=== PATIENT | female | born 1950 | race Asian ===

== ENCOUNTER 2023-01-17 09:50 | Emergency (ER) | payer OTHER ==
--- OUTSIDE RECORDS SUMMARY | 2023-01-17 09:53 | XMS REPORT | Continuity of Care Document ---
:1950 Author Organization [facility] t Address [address] [facility] [address] [place] [id number] Care Team Providers Name Role Phone Tsering Jackson Attending Clinician Unavailable Opal Robles Attending Clinician Unavailable Payers Payer Name Policy Type Policy Number Effective Date Expiration Date [place] [address] [id number] 2019 Common [employer]ALTHC[employer] DUAL 00:00:00 [facility] Problems Condition Condition Condition Status Onset Resolution Last Treating Co mments Source Name Details Category Date Date Treatment Clinician Date [id number] Gastroesop Problem Co mmon hageal [facility] reflux - [facility] disease[facility] specified [id number] Thyroid Problem Common disorder [facility] [id number] Acute Problem Common right-side Spirit d low back - [facility]I pain with St right-side kes d sciatica Medica [facility] Center [id number] 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 - [facility] is without [facility] pathologic Medica l al Center fracture [id number] 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 - [facility] joints, [facility]r Center itis type [id number] Needs flu Problem Com mon shot [facility] - [facility] [id number] History of Problem Co mmon thyroid [facility] nodule - [facility] [id number] 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 Social History Social Habit Start Date Stop Date Quantity Comments Source History of Tobacco Use Co mmon [facility] Sex Assigned At Com mon [facility] Smoking Status Start Date Stop Date Source Never Smoker Common [facility] Medications Ordered Filled Start Stop Current Ordering Indication Dosage Frequency Signature Comments Components Source Medication Medication Date Date Medication? Clinician (SIG) Name Name Alendronate Alendronate 2019-0 2020- No Na Robles 1 tablet Common Sodium Sodium -13 07-11 Spirit 00:00: 00:00 - [facility] 00 : [facility]ist[facility] 2018-0 No 40mg Common (Triamcinol (Triamcinol 9-16 S pirit one) one) 00:00: - [facility] Neftalist. [facility] 2018-0 No 40mg Common (Triamcinol (Triamcinol 9-16 S pirit one) one) 00:00: - [facility] Ankur Kenalog 2018-0 No 40mg Common (Triamcinol (Triamcinol 9-16 S pirit one) one) 00:00: - [facility] 2019-0 No 40mg Common (Triamcinol (Triamcinol 9-16 S pirit one) one) 00:00: - [facility] Kenalog 2019-0 No 40mg Common (Triamcinol (Triamcinol 9-16 S pirit one) one) 00:00: - [facility] Ankur Kenalog 2019-0 No 40mg Common (Triamcinol (Triamcinol 9-16 S pirit one) one) 00:00: - [facility] Omeprazole Omeprazole 2018-0 Yes Na Robles 1 capsule Common 02-16 Spirit 00:00: - [facility] Alendronate Alendronate No 1{table Alendronat Sodium 70 Sodium 70 t} e Sodium MG MG 70 MG Alendronate Alendronate No 1{table Alendronat Sodium 70 Sodium 70 t} e Sodium MG MG 70 MG Omeprazole Omeprazole No 1{capsu QD Omeprazole 40 MG 40 MG le} 40 MG Alendronate Alendronate No 1{table Alendronat Sodium 70 Sodium 70 t} e Sodium MG MG 70 MG Omeprazole Omeprazole No 1{capsu QD Omeprazole 40 MG 40 MG le} 40 MG Alendronate Alendronate No 1{table Sodium 70 Sodium 70 t} MG MG Omeprazole Omeprazole No 1{capsu QD 40 MG 40 MG le} Alendronate Alendronate No 1{table Alendronat Sodium 70 Sodium 70 t} e Sodium MG MG 70 MG Omeprazole Omeprazole No 1{capsu QD Omeprazole 40 MG 40 MG le} 40 MG Omeprazole Omeprazole No 1{capsu QD Omeprazole 40 MG 40 MG le} 40 MG Alendronate Alendronate No 1{table Alendronat Sodium 70 Sodium 70 t} e Sodium MG MG 70 MG Omeprazole Omeprazole No 1{capsu QD Omeprazole 40 MG 40 MG le} 40 MG Alendronate Alendronate No 1{table Alendronat Sodium 70 Sodium 70 t} e Sodium MG MG 70 MG Omeprazole Omeprazole No 1{capsu QD Omeprazole 40 MG 40 MG le} 40 MG Alendronate Alendronate No 1{table Alendronat Sodium 70 Sodium 70 t} e Sodium MG MG 70 MG Omeprazole Omeprazole No 1{capsu QD Omeprazole 40 MG 40 MG le} 40 MG Alendronate Alendronate No 1{table Alendronat Sodium 70 Sodium 70 t} e Sodium MG MG 70 MG Omeprazole Omeprazole No 1{capsu QD Omeprazole 40 MG 40 MG le} 40 MG Immunizations Ordered Immunization Filled Immunization Date Status Commen ts Source Name Name FLUZONE HIGH DOSE FLUZONE HIGH DOSE 2022-06-24 Completed [facility] OVER 65 OVER 65 16:15:00 - [facility] FLUZONE HIGH DOSE FLUZONE HIGH DOSE 2022-06-24 Completed [facility] OVER 65 OVER 65 16:15:00 - [facility] FluAD FluAD 2020-06-29 Completed [facility] 10:03:00 - [facility] FluAD FluAD 2020-06-29 Completed [facility] 10:03:00 - [facility] FluAD FluAD 2020-06-29 Completed [facility] 10:03:00 - [facility] FluAD FluAD 2020-06-29 Completed [facility] 10:03:00 - [facility] FluAD FluAD 2020-06-29 Completed [facility] 10:03:00 - [facility] FluAD FluAD 2020-06-29 Completed [facility] 10:03:00 - [facility] FluAD FluAD 2020-06-29 Completed [facility] 10:03:00 - [facility] FluAD FluAD 2020-06-29 Completed [facility] 10:03:00 - [facility] FluAD FluAD 2020-06-29 Completed [facility] 10:03:00 - [facility] FluAD FluAD 2020-06-29 Completed [facility] 09:51:00 - [facility] FluAD FluAD 2020-06-29 Completed [facility] 09:51:00 - [facility] FluAD FluAD 2020-06-29 Completed [facility] 09:51:00 - [facility] FluAD FluAD 2020-06-29 Completed [facility] 09:51:00 - [facility] FluAD FluAD 2020-06-29 Completed [facility] 09:51:00 - [facility] FluAD FluAD 2020-06-29 Completed [facility] 09:51:00 - [facility] FluAD FluAD 2020-06-29 Completed [facility] 09:51:00 - [facility] FluAD FluAD 2020-06-29 Completed [facility] 09:51:00 - [facility] FluAD FluAD 2020-06-29 Completed [facility] 09:51:00 - [facility] FluAD FluAD 2019-06-07 Completed [facility] 15:59:00 - [facility] FluAD FluAD 2019-06-07 Completed [facility] 15:59:00 - [facility] FluAD FluAD 2019-06-07 Completed [facility] 15:59:00 - [facility] FluAD FluAD 2019-06-07 Completed [facility] 15:59:00 - [facility] FluAD FluAD 2019-06-07 Completed [facility] 15:59:00 - [facility] FluAD FluAD 2019-06-07 Completed [facility] 15:59:00 - [facility] FluAD FluAD 2019-06-07 Completed [facility] 15:59:00 - [facility] FluAD FluAD 2019-06-07 Completed [facility] 15:59:00 - [facility] FluAD FluAD 2019-06-07 Completed [facility] 15:59:00 - [facility] FluAD FluAD 2019-06-07 Completed [facility] 00:00:00 - [facility] Ankur Pascual 2019-05-24 Completed [facility] (Triamcinolone) (Triamcinolone) 11:19:00 [facility] Ankur Pascual 2019-05-24 Completed [facility] (Triamcinolone) (Triamcinolone) 11:19:00 [facility] Prevnar 13 Prevnar 2019-02-16 Completed [facility] -Pneumonia Vaccine -Pneumonia Vaccine 15:49:00 [facility] Prevnar 13 Prevnar 2019-02-16 Completed [facility] -Pneumonia Vaccine -Pneumonia Vaccine 15:49:00 - [facility] Prevnar 13 Prevnar 2019-02-16 Completed [facility] -Pneumonia Vaccine -Pneumonia Vaccine 15:49:00 [facility] Prevnar 13 Prevnar 2019-02-16 Completed [facility] -Pneumonia Vaccine -Pneumonia Vaccine 15:49:00 [facility] Prevnar 13 Prevnar 13 2019-02-16 Completed [facility] -Pneumonia Vaccine -Pneumonia Vaccine 15:49:00 [facility] Prevnar 13 Prevnar 13 2019-02-16 Completed [facility] -Pneumonia Vaccine -Pneumonia Vaccine 15:49:00 [facility] Prevnar 13 Prevnar 13 2019-02-16 Completed [facility] -Pneumonia Vaccine -Pneumonia Vaccine 15:49:00 [facility] Prevnar 13 Prevnar 13 2019-02-16 Completed [facility] -Pneumonia Vaccine -Pneumonia Vaccine 15:49:00 [facility] Prevnar 13 Prevnar 2019-02-16 Completed [facility] -Pneumonia Vaccine -Pneumonia Vaccine 15:49:00 [facility] Prevnar 13 Prevnar 13 2019-02-16 Completed [facility] -Pneumonia Vaccine -Pneumonia Vaccine 00:00:00 [facility] Vital Signs Vital Name Observation Time Observation Value Comments Source height 2022-06-24 15:00:00 57.00 [in_i] Common [facility] weight 2022-06-24 15:00:00 107.4 [lb_av] [facility] temperature 2022-06-24 15:00:00 97.3 [degF] [facility] bmi 2022-06-24 15:00:00 23.24 kg/m2 Common S [facility] oximetry 2022-06-24 15:00:00 97 % Common S [facility] respiratory rate 2022-06-24 15:00:00 16 /min Comm on [facility] blood pressure 2022-06-24 15:00:00 130 mm[Hg] Common [facility] - systolic [facility] blood pressure 2022-06-24 15:00:00 71 mm[Hg] [facility] - diastolic [facility] height 2022-06-24 14:20:00 57.00 [in_i] Common [facility] weight 2022-06-24 14:20:00 107.4 [lb_av] [facility] temperature 2022-06-24 14:20:00 97.3 [degF] [facility] bmi 2022-06-24 14:20:00 23.24 kg/m2 Common S [facility] oximetry 2022-06-24 14:20:00 97 % Common S [facility] respiratory rate 2022-06-24 14:20:00 16 /min Comm on [facility] blood pressure 2022-06-24 14:20:00 130 mm[Hg] Common [facility] - systolic [facility] blood pressure 2022-06-24 14:20:00 71 mm[Hg] [facility] - diastolic [facility] height 2022-01-28 15:00:00 57.00 [in_i] Common S pirit [facility] weight 2022-01-28 15:00:00 105.0 [lb_av] Common [facility] temperature 2022-01-28 15:00:00 97.2 [degF] Common [facility] bmi 2022-01-28 15:00:00 22.72 kg/m2 Common [facility] oximetry 2022-01-28 15:00:00 98 % Common [facility] respiratory rate 2022-01-28 15:00:00 16 /min Comm on [facility] blood pressure 2022-01-28 15:00:00 124 mm[Hg] Common [facility] - systolic [facility] blood pressure 2022-01-28 15:00:00 70 mm[Hg] Common [facility] - diastolic [facility] height 2021-10-22 14:20:00 57.00 [in_i] Common [facility] weight 2021-10-22 14:20:00 108.4 [lb_av] [facility] temperature 2021-10-22 14:20:00 97.7 [degF] Common [facility] bmi 2021-10-22 14:20:00 23.45 kg/m2 [facility] oximetry 2021-10-22 14:20:00 98 % [facility] respiratory rate 2021-10-22 14:20:00 16 /min Comm on [facility] blood pressure 2021-10-22 14:20:00 130 mm[Hg] Common [facility] - systolic [facility] blood pressure 2021-10-22 14:20:00 80 mm[Hg] Common [facility] - diastolic [facility] height 2021-04-03 15:40:00 57.00 [in_i] Common [facility] weight 2021-04-03 15:40:00 111.6 [lb_av] [facility] temperature 2021-04-03 15:40:00 97.6 [degF] Common [facility] bmi 2021-04-03 15:40:00 24.15 kg/m2 [facility] oximetry 2021-04-03 15:40:00 96 % [facility] respiratory rate 2021-04-03 15:40:00 16 /min Comm on [facility] blood pressure 2021-04-03 15:40:00 118 mm[Hg] Common [facility] - systolic [facility] blood pressure 2021-04-03 15:40:00 84 mm[Hg] Common [facility] - diastolic [facility] height 2021-04-03 16:20:00 57.00 [in_i] [facility] weight 2021-04-03 16:20:00 111.6 [lb_av] Common [facility] temperature 2021-04-03 16:20:00 97.6 [degF] Common [facility] bmi 2021-04-03 16:20:00 24.15 kg/m2 [facility] oximetry 2021-04-03 16:20:00 96 % [facility] blood pressure 2021-04-03 16:20:00 118 mm[Hg] Common [facility] - systolic [facility] blood pressure 2021-04-03 16:20:00 84 mm[Hg] Common [facility] diastolic [facility] Procedures This patient has no known procedures. Encounters Start End Encounter Admission Attending Care Care Encounter Source Date/Time Date/Time Type Type Clinicians Facility Department ID 2022-12-13 Outpatient Jackson, STLMLC STLC [id number] Common 12:36:00 Tsering [id number] [facility] 2022-06-20 [facility] [id number] 2 Common 09:21:01 [facility] 2022-01-24 Out[facility] Travis [facility] [id number] 2 Common 09:29:39 [facility] 2021-10-03 Outpatient Robles, Na STLMLC STLMLC [id number] Common 13:36:53 [id number] [facility] 2021-10-03 Outpatient Robles, Na STLMLC STLMLC [id number] Common 13:25:55 [id number] [facility] 2021-10-03 Outpatient Robles, Na STLMLC STLMLC [id number] Common 11:16:51 [id number] [facility] 2021-10-03 Outpatient Robles, Na STLMLC STLMLC [id number] 2 Common 11:16:46 [id number] [facility] 2021-10-03 Outpatient Robles, Na STLMLC STLMLC [id number] Common 10:58:34 [id number] [facility] 2022-06-24 2022-06-24 SUB ANNUAL STLMLC STLMLC [id number] Common 00:00:00 00:00:00 MCR [facility] VISIT [facility] 2022-06-24 2022-06-24 OFFICE STLMLC STLMLC [id number] Co mmon 00:00:00 00:00:00 VISIT EST Spir it PT LEVEL 3 [facility] 2022-06-18 2022-06-18 (TEL) STLMLC STLMLC [id number] Co mmon 00:00:00 00:00:00 [facility] 2022-06-17 2022-06-17 OFFICE STLMLC STLMLC [id number] Co mmon 00:00:00 00:00:00 VISIT EST Spir it PT LEVEL 3 [facility] 2022-06-14 2022-06-14 (TEL) STLMLC STLMLC [id number] Co mmon 00:00:00 00:00:00 [facility] 2022-01-28 2022-01-28 OFFICE STLMLC STLMLC [id number] Co mmon 00:00:00 00:00:00 VISIT EST Spir it PT LEVEL 3 [facility] 2021-10-22 2021-10-22 OFFICE STLMLC STLMLC [id number] Co mmon 00:00:00 00:00:00 VISIT EST Spir it PT LEVEL 3 - CHI [facility] 2021-04-03 2021-04-03 OFFICE STLMLC STLMLC [id number] Co mmon 00:00:00 00:00:00 VISIT EST Spir it PT LEVEL 3 - CHI [facility] 2021-04-03 2021-04-03 SUB ANNUAL STLMLC STLMLC [id number] Common 00:00:00 00:00:00 MCR Spirit WELLNESS - CHI VISIT [facility] 2020-06-29 2020-06-29 Outpatient STLMLC STLMLC [id number] Common 00:00:00 00:00:00 Spirit - [facility] 2020-06-28 2020-06-28 Outpatient STLMLC STLMLC [id number] Common 00:00:00 00:00:00 Spirit - [facility] 2020-03-20 2020-03-20 [facility] [id number] Common 10:40:00 10:40:[address] [facility] [facility] 2019-12-13 2019-12-13 [facility] [id number] Common 11:40:00 11:40:[address] Sp[address] [facility] 2019-09-20 2019-09-20 [facility] [id number] Common 10:40:00 10:40:[address] Sp[address] [facility] 2019-06-07 2019-06-07 Out[facility] [id number] Common 14:00:00 14:00:[address] Sp[address] [facility] 2019-05-24 2019-05-24 [facility] [id number] Common 09:40:00 09:40:[address] Sp[address] [facility] 2019-02-16 2019-02-16 [facility] [id number] Common 15:20:00 15:20:[address] [facility] Results Test Description Test Time Test Comments Results Result Comments Source Chest Pa And Lat (2 Chest Pa And Lat Views) (2 Views) Ribs Left Ribs Left
[2023-01-17] MEDS ORDERED: ONDANSETRON 4 MG/2 ML VIAL ONE (10:22)
[2023-01-17] MEDS ORDERED: MECLIZINE HCL 12.5 MG TAB ONE (10:22)
--- NOTE | 2023-01-17 10:30 | RAD REPORT ---
EXAM DESCRIPTION: CT - Head Brain Wo Cont - 01/17/2023 10:23 am CLINICAL HISTORY: vertigo COMPARISON: No comparisons TECHNIQUE: All CT scans are performed using dose optimization technique as appropriate and may inclu de automated exposure control or mA/KV adjustment according to patient size. FINDINGS: No intracranial hemorrhage, hydrocephalus or extra-axial fluid collection.No areas of brai n edema or evidence of midline shift. The paranasal sinuses and mastoids are clear. The calvarium is intact. IMPRESSION: No acute intracranial abnormality.
[2023-01-17 10:35] LABS: Hematocrit 38.8 % (36.0-45.0); Lymphocytes % 21.3 % (15.3-44.8); MCV 88.5 fL (80-100); MPV 8.6 fL (7.6-11.3); RBC Red Blood Cell Count 4.38 M/uL (3.86-4.86)
[2023-01-17 10:56] LABS: Albumin 3.8 g/dL (3.4-5.0); Bilirubin Total 0.3 mg/dL (0.2-1.0); Magnesium 1.9 mg/dL (1.6-2.4); Potassium 3.8 mEq/L (3.5-5.1); Protein, Total 7.3 g/dL (6.4-8.2); Troponin High Sensitivity 5.9 pg/mL (<58.9)
--- NOTE | 2023-01-17 11:18 | EDPHYS ---
Physician Documentation [facility] Name: Rose Vallejo Age: 72 yrs Sex: Female : 1950 Arrival Date: 01/17/2023 Time: 09:50 Bed 20 Private MD: GUS Physician Chaka Heath HPI: 01/17 10:04 This 72 yrs old Female presents to ER via EMS with complaints of nausea, rt dizziness. 10:04 History obtained per [employer] translation services. Patient presents to rt the ED with an acute onset of dizziness and feelings of being "unwell." She had associated nausea without vomiting. She denies any headache, abdominal pain, chest pain, shortness of breath. Patient states that the symptoms have improved but are still present. Denies other acute complaints at this time. Symptoms are moderate in severity, no other aggravating or alleviating factors.. Historical: - Allergies: 10:03 No Known Allergies; ap3 - Home Meds: 10:04 None [Active]; ap3 - PMHx: 10:03 Hypertensive disorder; Hypercholesterolemia; ap3 - Immunization history:: Client reports receiving the 2nd dose of the Covid vaccine. - Social history:: Smoking status: Patient denies any tobacco usage or history of. - Family history:: not pertinent. ROS: 10:04 Constitutional: Negative for fever, chills, and weight loss, Cardiovascular: Negative rt for chest pain, palpitations, and edema, Respiratory: Negative for shortness of breath, cough, wheezing, and pleuritic chest pain, MS/Extremity: Negative for injury and deformity, Skin: Negative for injury, rash, and discoloration, Psych: Negative for depression, anxiety, suicide ideation, homicidal ideation, and hallucinations. 10:04 Abdomen/GI: Positive for nausea, Negative for abdominal pain, vomiting. 10:04 Neuro: Positive for dizziness, Negative for altered mental status. Exam: 10:04 Constitutional: This is a well developed, well nourished patient who is awake, alert, rt and in no acute distress. Head/Face: Normocephalic, atraumatic. Chest/axilla: Normal chest wall appearance and motion. Nontender with no deformity. No lesions are appreciated. Cardiovascular: Regular rate and rhythm with a normal S1 and S2. No gallops, murmurs, or rubs. Normal PMI, no JVD. No pulse deficits. Respiratory: Lungs have equal breath sounds bilaterally, clear to auscultation and percussion. No rales, rhonchi or wheezes noted. No increased work of breathing, no retractions or nasal flaring. Abdomen/GI: Soft, non-tender, with normal bowel sounds. No distension or tympany. No guarding or rebound. No evidence of tenderness throughout. MS/ Extremity: Pulses equal, no cyanosis. Neurovascular intact. Full, normal range of motion. Psych: Awake, alert, with orientation to person, place and time. Behavior, mood, and affect are within normal limits. 10:04 Eyes: No nystagmus, head impulse and test of skew negative, extraocular muscles are intact. 10:04 Neuro: Speech normal, cranial nerves II through XII intact, strength and sensation intact in upper and lower extremities. 10:46 ECG was reviewed by the Attending Physician. rt 10:50 ECG was reviewed by the Attending Physician. rt Vital Signs: 10:02 BP 165 / 79; Pulse 70; Resp 18; Temp 97.4; Pulse Ox 99% ; Weight 48.99 kg; ap3 10:43 BP 157 / 94; ap3 MDM: 10:00 Patient medically screened. rt 11:22 Differential diagnosis: cardiac arrhythmia, CVA, near-syncope, vertigo. Data reviewed: rt vital signs, nurses notes, lab test result(s), EKG, radiologic studies. Consideration of Admission/Observation Escalation of care including admission/observation considered. HI NTS exam unremarkable, NIH SS is 0, does not seem to be of a central etiology, suspect peripheral vertigo, does not require admission for stroke rule out as the symptoms have resolved with meclizine administration.. I considered the following discharge prescriptions or medication management in the emergency department Medications were administered in the Emergency Department. See MAR. Independent interpretation of the following test(s) in the Emergency Department CT Scan: My interpretation is No hemorrhage seen on my interpretation of CT scan images. Test considered but Not performed: MRI: Lower suspicion for central vertigo, MRI not indicated. Care significantly affected by the following chronic conditions: Hypertension. Counseling: I had a detailed discussion with the patient and/or guardian regarding: the historical points, exam findings, and any diagnostic results supporting the discharge/admit diagnosis, lab results, radiology results, the need for outpatient follow up. 01/17 10:01 Order name: CBC with Diff; Complete Time: 11: rt 01/17 10:01 Order name: CMP; Complete Time: 11: rt 01/17 10:01 Order name: Lipase; Complete Time: 11: rt 01/17 10:01 Order name: Troponin High Sensitivity; Complete Time: 11:07 rt 01/17 10:04 Order name: Magnesium; Complete Time: 11: rt 01/17 10:04 Order name: CPK; Complete Time: 11: rt 01/17 10:01 Order name: CT Head Brain wo Cont; Complete Time: 10:36 rt 01/17 10:01 Order name: EKG; Complete Time: 10:02 rt 01/17 10:01 Order name: EKG - Nurse/Tech; Complete Time: 10:49 rt EC:50 Rate is 75 beats/min. Rhythm is regular, Normal Sinus Rhythm with No ectopy. QRS [place] rt is Normal. IN interval is normal. QRS interval is normal. QT interval is normal. No Q waves. T waves are Normal. No ST changes noted. Interpreted by me. Administered Medications: 10:05 Drug: NS 0.9% IV 1000 ml Route: IV; Rate: 1 bolus; Site: left antecubital; ap3 11:18 Follow up: IV Status: Completed infusion ap3 10:18 Drug: Meclizine PO 50 mg Route: PO; ap3 11:18 Follow up: Response: No adverse reaction ap3 10:18 Drug: Ondansetron IVP 4 mg Route: IVP; Site: left antecubital; ap3 11:18 Follow up: Response: No adverse reaction ap3 Disposition Summary: 01/17/23 11:17 Discharge Ordered Location: Home rt Problem: new rt Symptoms: are resolved rt Condition: Stable rt Diagnosis - Benign paroxysmal vertigo rt Followup: rt - With: Private Physician - When: 2 - 3 days - Reason: Discharge Instructions: - Discharge Summary Sheet rt - Benign Positional Vertigo rt Forms: - Medication Reconciliation Form rt - Thank You Letter rt - Antibiotic Education rt - Prescription Opioid Use rt Prescriptions: - Meclizine 25 mg Oral Tablet - take 1 tablet by ORAL route every 8 hours As needed; 30 tablet; Refills: 0, rt Product Selection Permitted Signatures: Dispatcher [employer] Martha North RN RN ap3 Chaka Heath MD MD rt Corrections: (The following items were deleted from the chart) 10:51 10:46 Rate is 116 beats/min. Rhythm is regular, Sinus tachycardia with No ectopy. QRS rt [place] is Normal. IN interval is normal. QRS interval is normal. QT interval is normal. No Q waves. T waves are Normal. No ST changes noted. Interpreted by me. rt
--- NOTE | 2023-01-17 11:18 | ER ---
Nurse's Notes [facility] Name: Rose Vallejo Age: 72 yrs Sex: Female : 1950 Arrival Date: 01/17/2023 Time: 09:50 Bed 20 Private MD: Diagnosis: Benign paroxysmal vertigo Presentation: 01/17 10:02 Chief complaint: EMS states: they were called to the patients house for dizziness that ap3 had improved upon their arrival. patient reports that she was walking in her garden and became dizzy with associated nausea at approx 0830 this morning. Coronavirus screen: At this time, the client does not indicate any symptoms associated with coronavirus-19. Ebola Screen: No symptoms or risks identified at this time. Initial Sepsis Screen: Does the patient meet any 2 criteria? No. Patient's initial sepsis screen is negative. Does the patient have a suspected source of infection? No. Patient's initial sepsis screen is negative. Risk Assessment: Do you want to hurt yourself or someone else? Patient reports no desire to harm self or others. Onset of symptoms was January 17, 2023 at 08:30. 10:02 Method Of Arrival: EMS: [facility] ap3 10:02 Acuity: FRANCI 3 ap3 10:04 Care prior to arrival: Medication(s) given: Normal saline infusion, IV initiated. 20 ap3 GA, in the left antecubital area. Triage Assessment: 10:04 General: Appears in no apparent distress. Behavior is calm, cooperative. Pain: Denies ap3 pain. Neuro: Level of Consciousness is awake, alert, obeys commands, Oriented to person, place, time, situation, Reports dizziness. Cardiovascular: Patient's skin is warm and dry. Respiratory: Airway is patent Respiratory effort is even, unlabored, Respiratory pattern is regular, symmetrical. GI: Reports nausea. Historical: - Allergies: 10:03 No Known Allergies; ap3 - Home Meds: 10:04 None [Active]; ap3 - PMHx: 10:03 Hypertensive disorder; Hypercholesterolemia; ap3 - Immunization history:: Client reports receiving the 2nd dose of the Covid vaccine. - Social history:: Smoking status: Patient denies any tobacco usage or history of. - Family history:: not pertinent. Screenin:04 [facility] ED Fall Risk Assessment (Adult) History of falling in the last 3 months, ap3 including since admission No falls in past 3 months (0 pts). Abuse screen: Denies threats or abuse. Nutritional screening: No deficits noted. Tuberculosis screening: No symptoms or risk factors identified. Assessment: 11:17 Reassessment: daughter was contacted in regards to patients discharge. daughter states ap3 she will be here in approx 30 mins. Vital Signs: 10:02 BP 165 / 79; Pulse 70; Resp 18; Temp 97.4; Pulse Ox 99% ; Weight 48.99 kg; ap3 10:43 BP 157 / 94; ap3 ED Course: 10:00 Patient arrived in ED. zm 10:00 Chaka Heath MD is Attending Physician. rt 10:02 Martha Armenta, DARIUS is Primary Nurse. ap3 10:03 Triage completed. ap3 10:05 Arm band placed on right wrist. ap3 10:05 Patient has correct armband on for positive identification. Bed in low position. Call ap3 light in reach. Side rails up X2. Adult w/ patient. nurse monitoring on. Pulse ox on. NIBP on. Door closed. Noise minimized. 10:19 Initial lab(s) drawn, by me, sent to lab. Maintain EMS IV. Dressing intact. Good blood ap3 return noted. Site clean \T\ dry. Gauge \T\ site: 20g left AC. 10:25 CT Head Brain wo Cont In Process Unspecified. EDMS 10:49 EKG done, by ED staff, reviewed by Chaka Heath MD. ap3 12:06 No provider procedures requiring assistance completed. IV discontinued, intact, ap3 bleeding controlled, No redness/swelling at site. Pressure dressing applied. Administered Medications: 10:05 Drug: NS 0.9% IV 1000 ml Route: IV; Rate: 1 bolus; Site: left antecubital; ap3 11:18 Follow up: IV Status: Completed infusion ap3 10:18 Drug: Meclizine PO 50 mg Route: PO; ap3 11:18 Follow up: Response: No adverse reaction ap3 10:18 Drug: Ondansetron IVP 4 mg Route: IVP; Site: left antecubital; ap3 11:18 Follow up: Response: No adverse reaction ap3 Medication: 12:06 VIS not applicable for this client. ap3 Outcome: 11:17 Discharge ordered by . rt 12:06 Discharged to home ambulatory, with family. ap3 12:06 Condition: good 12:06 Discharge instructions given to patient, Instructed on discharge instructions, follow up and referral plans. medication usage, Demonstrated understanding of instructions, follow-up care, medications, Prescriptions given X 1. 12:06 Patient left the ED. ap3 Signatures: Dispatcher [employer] Martha North RN RN ap3 Iliana George Ryan, MD MD rt
[2023-01-17 12:11] VITALS: TEMP 97.4; O2SAT 99
[2023-01-17 12:12] VITALS: BP 157/94
--- NOTE | 2023-01-19 14:47 | EKG ---
Test Date: 2023-01-17 Test Time: 10:47:47 Warehouse Operator: ALP MEASUREMENT RESULTS: Intervals: Rate: 75 NM: 190 QRSD: 94 QT: 414 QTc: 462 [place]: P: 80 NM: 190 QRS: 72 T: 78 INTERPRETIVE STATEMENTS: Normal sinus rhythm Normal ECG No previous ECG available for comparison Electronically Signed On 01-19-23 14:44:39 CDT by Zack Lockhart
== END 2023-01-17 12:06 | disposition home or self-care (01) ==
LOC: ER 09:50
DX: H81.10 Benign paroxysmal vertigo, unspecified ear (principal)
CPT/HCPCS: 96361; 93005; 85025; 36415; 83735; 82550; 84484; 83690; 80053; 70450; 96374; 99285; J8597; J2405